=== PATIENT | male | born 1955 | race African-American/Black ===

== ENCOUNTER 2021-06-25 03:12 | Inpatient (IN) | payer MEDICARE ==
[2021-06-25 05:36] VITALS: BMI 31.9
[2021-06-25] MEDS ORDERED: Ondansetron ODT 4 MG TAB PO PRN (07:17)
[2021-06-25] MEDS ORDERED: Acetaminophen 325 MG TAB PO PRN (07:17)
[2021-06-25] MEDS ORDERED: guaiFENesin 200 MG TAB PO PRN (07:22)
[2021-06-25] MEDS ORDERED: Benzonatate 100 MG CAP PO PRN (07:22)
[2021-06-25] MEDS ORDERED: Albuterol 200 PUFF (6.7GM INHALER) INH PRN (07:32)
[2021-06-25] MEDS ORDERED: Dextrose 5% in Water 1,000 ML IV PRN (08:11)
[2021-06-25] MEDS ORDERED: Dextrose 50% Abboject 50 ML SYRINGE SLOW IVP PRN (08:11)
[2021-06-25 08:21] LABS: Hemoglobin 19.1 g/dL (14.0-18.0); Mean Corpuscular HGB CONC 32.7 g/dL (32.0-36.0); Mean Corpuscular Hemoglobin 29.1 pg (27.0-31.0); Mean Corpuscular Volume 89.2 fL (78.0-98.0); Mean Platelet Volume 8.3 fL (7.4-10.4); Platelet Count 162 thou/uL (130-400); RBC Distribution Width 14.2 % (11.5-14.5); Red Blood Cell (RBC) Count 6.56 mill/uL (4.70-6.10); White Blood Cell (WBC) Count 9.4 thou/uL (4.8-10.8)
[2021-06-25 08:31] LABS: Anion Gap 16 mmol/L (10-20); BUN (Urea Nitrogen) 67 mg/dL (8.4-25.7); Calc. Creatinine Clearance 82 mL/min (70-130); Calcium 8.2 mg/dL (7.8-10.44); Carbon Dioxide 21 mmol/L (23-31); Chloride 100 mmol/L (98-107); Glucose 217 mg/dL (80-115); Potassium 5.4 mmol/L (3.5-5.1); Sodium 132 mmol/L (136-145)
[2021-06-25] MEDS ORDERED: cloNIDine 0.1 MG TAB PO SCH (09:00)
[2021-06-25] MEDS: Enoxaparin Sodium 40 MG/0.4 ML SYRINGE SC SCH (09:16)
[2021-06-25] MEDS: Dexamethasone 4 mg/ml Vial SLOW IVP SCH (09:17)
[2021-06-25] MEDS: Carvedilol 6.25 MG TAB PO SCH ×2 (09:18→16:04)
[2021-06-25] MEDS: Ascorbic Acid 500 mg Chewable Tablet PO SCH (09:22)
[2021-06-25] MEDS: Furosemide 40 MG TAB PO SCH (09:22)
[2021-06-25] MEDS: Zinc Sulfate 220 MG CAP PO SCH (09:22)
[2021-06-25] MEDS: Lisinopril 20 MG TAB PO SCH (09:22)
[2021-06-25] MEDS: Atorvastatin Calcium 40 MG TAB PO SCH (09:22)
[2021-06-25] MEDS: Acetaminophen 500 MG TAB PO SCH ×4 (09:30→21:22)
[2021-06-25] MEDS: Lantus 1000 UNITS/10 ML VIAL SC SCH (09:32)
[2021-06-25 10:27] LABS: Band 2 % (5-11); Lymphocytes 11 % (21-51); MDiff Complete? YES; Monocytes 10 % (0-10); Neutrophil 77 % (42-75); Platelet Morphology Comment Appears Adequate; RBC Morphology Normal
[2021-06-25] MEDS: HumaLOG 300 UNITS/3 ML VIAL SC PRN ×3 (12:35→21:01)
[2021-06-25] MEDS: Benzonatate 100 MG CAP PO SCH ×2 (13:31→17:20)
[2021-06-26] MEDS: Benzonatate 100 MG CAP PO SCH ×5 (00:17→23:37)
[2021-06-26] MEDS: Acetaminophen 500 MG TAB PO SCH ×6 (01:00→20:47)
[2021-06-26] MEDS: HumaLOG 300 UNITS/3 ML VIAL SC PRN (05:37)
[2021-06-26] MEDS: Atorvastatin Calcium 40 MG TAB PO SCH (08:42)
[2021-06-26] MEDS: Zinc Sulfate 220 MG CAP PO SCH (08:42)
[2021-06-26] MEDS: Enoxaparin Sodium 40 MG/0.4 ML SYRINGE SC SCH (08:42)
[2021-06-26] MEDS: Carvedilol 6.25 MG TAB PO SCH ×2 (08:43→18:49)
[2021-06-26] MEDS: Lisinopril 20 MG TAB PO SCH (08:43)
[2021-06-26] MEDS: Ascorbic Acid 500 mg Chewable Tablet PO SCH (08:43)
[2021-06-26] MEDS: Lantus 1000 UNITS/10 ML VIAL SC SCH ×2 (08:44→20:50)
[2021-06-26] MEDS: Furosemide 40 MG TAB PO SCH (08:44)
[2021-06-26] MEDS: Dexamethasone 4 mg/ml Vial SLOW IVP SCH (09:20)
[2021-06-26 12:19] LABS: Actual Bicarbonate (HCO3a) 25.3 mEq/L (22-28); Base Excess (BEa) 1.4 mEq/L (-2.0 to +3.0); Carboxyhemoglobin (COHb) 0.3 gm% (0.0-3.0); Hemoglobin (Hb) 17.4 g/dL (14.0-18.0); O2 Tension (PaO2), arterial 68.4 mmHg (> 80.0); Potassium - ABG Lab 4.95 mmol/L (3.70-5.30); pH, Arterial 7.44 (7.35-7.45)
[2021-06-26 12:29] LABS: Puncture Site LRA
[2021-06-26 13:01] LABS: Hemoglobin 16.7 g/dL (14.0-18.0); Mean Corpuscular HGB CONC 32.6 g/dL (32.0-36.0); Mean Corpuscular Hemoglobin 29.2 pg (27.0-31.0); Mean Corpuscular Volume 89.5 fL (78.0-98.0); Mean Platelet Volume 8.4 fL (7.4-10.4); Platelet Count 112 thou/uL (130-400); Red Blood Cell (RBC) Count 5.71 mill/uL (4.70-6.10); White Blood Cell (WBC) Count 9.8 thou/uL (4.8-10.8)
[2021-06-26 13:06] LABS: PTT 42.3 sec (22.9-36.1)
[2021-06-26 13:07] LABS: Band 2 % (5-11); Lymphocytes 3 % (21-51); MDiff Complete? YES; Monocytes 5 % (0-10); Neutrophil 89 % (42-75); Platelet Morphology Comment Appears Decreased; RBC Morphology Normal; Reactive Lymphocytes 1 % (0-10)
[2021-06-26 13:09] LABS: INR-International Normal Ratio 1.3; Prothrombin Time 16.2 sec (12.0-14.7)
[2021-06-26 13:10] LABS: Lactic Acid 2.4 mmol/L (0.5-2.2)
[2021-06-26 13:11] LABS: ALT (SGPT) 120 U/L (8-55); AST (SGOT) 78 U/L (5-34); Albumin 2.2 g/dL (3.4-4.8); Alkaline Phosphatase 87 U/L (40-110); Anion Gap 10 mmol/L (10-20); BUN (Urea Nitrogen) 78 mg/dL (8.4-25.7); Bilirubin, Total 0.7 mg/dL (0.2-1.2); CK (CPK) 130 U/L (30-200); Calc. Creatinine Clearance 66 mL/min (70-130); Calcium 7.4 mg/dL (7.8-10.44); Carbon Dioxide 24 mmol/L (23-31); Chloride 99 mmol/L (98-107); Globulin 2.5 g/dL (2.4-3.5); Glucose 161 mg/dL (80-115); Potassium 5.3 mmol/L (3.5-5.1); Protein, Total 4.7 g/dL (5.8-8.1); Sodium 128 mmol/L (136-145)
[2021-06-26 13:12] LABS: Troponin I 0.044 ng/mL (< 0.028)
[2021-06-26] MEDS ORDERED: MEROPENEM 1 GM/50 ML 1 GM in Premix Bag 1 BAG IVPB SCH (13:15)
[2021-06-26 13:24] LABS: CKMB 9.1 ng/mL (0-6.6)
[2021-06-26] MEDS ORDERED: Meropenem 1 GM in Sodium Chloride 0.9% 100 ML IVPB SCH (14:00)
[2021-06-26] MEDS: VANCOMYCIN 2 GRAM/400 ML BAG 2 GM in Premix Bag 1 BAG IVPB SCH (15:42)
[2021-06-26 15:51] LABS: Troponin I 0.043 ng/mL (< 0.028)
[2021-06-26] MEDS: Sodium Chloride 0.9% 1,000 ML IV SCH (18:42)
[2021-06-26] MEDS: Enoxaparin Sodium 100 MG/ML SYRINGE SC SCH (20:48)
[2021-06-26] MEDS: MEROPENEM 1 GM/50 ML 1 GM in Premix Bag 1 BAG IVPB SCH (20:54)
[2021-06-26] MEDS ORDERED: VANCOMYCIN 1.25 GM/250 ML BAG 1.25 GM in Premix Bag 1 BAG IVPB SCH (21:00)
[2021-06-27] MEDS: Acetaminophen 500 MG TAB PO SCH ×3 (00:12→08:03)
[2021-06-27] MEDS: Sodium Chloride 0.9% 1,000 ML IV SCH ×4 (00:14→18:08)
[2021-06-27] MEDS: Vancomycin 1 GM in Premix Bag 1 BAG IVPB SCH ×3 (01:25→18:09)
[2021-06-27] MEDS: Benzonatate 100 MG CAP PO SCH ×5 (04:51→20:46)
[2021-06-27] MEDS: MEROPENEM 1 GM/50 ML 1 GM in Premix Bag 1 BAG IVPB SCH ×4 (05:17→21:02)
[2021-06-27] MEDS: Atorvastatin Calcium 40 MG TAB PO SCH (08:04)
[2021-06-27] MEDS: Ascorbic Acid 500 mg Chewable Tablet PO SCH (08:04)
[2021-06-27] MEDS: Zinc Sulfate 220 MG CAP PO SCH (08:04)
[2021-06-27] MEDS: Furosemide 40 MG TAB PO SCH (08:05)
[2021-06-27] MEDS: Enoxaparin Sodium 100 MG/ML SYRINGE SC SCH ×2 (08:05→20:45)
[2021-06-27] MEDS: Carvedilol 6.25 MG TAB PO SCH ×4 (08:05→18:09)
[2021-06-27] MEDS: Dexamethasone 4 mg/ml Vial SLOW IVP SCH (08:06)
[2021-06-27] MEDS: Lantus 1000 UNITS/10 ML VIAL SC SCH ×2 (08:07→20:45)
[2021-06-27] MEDS ORDERED: Acetaminophen 500 MG TAB PO PRN (08:32)
[2021-06-27] MEDS ORDERED: Sodium Chloride 0.9% 1,000 ML IV SCH (08:33)
[2021-06-27 10:38] LABS: #Basophils 0.1 thou/uL (0.0-0.2); #Lymphocytes 0.7 thou/uL (1.20-3.40); #Monocytes 0.9 thou/uL (0.11-0.59); #Neutrophils 8.9 thou/uL (1.40-6.50); %Basophils 0.8 % (0.0-1.0); %Eosinophils 0.2 % (0.0-10.0); %Lymphocytes 6.4 % (21.0-51.0); %Monocytes 8.8 % (0.0-10.0); %Neutrophils 83.9 % (42.0-75.0); Hemoglobin 16.8 g/dL (14.0-18.0); Mean Corpuscular HGB CONC 32.6 g/dL (32.0-36.0); Mean Corpuscular Hemoglobin 29.3 pg (27.0-31.0); Mean Platelet Volume 8.5 fL (7.4-10.4); Platelet Count 112 thou/uL (130-400); RBC Distribution Width 14.4 % (11.5-14.5); Red Blood Cell (RBC) Count 5.75 mill/uL (4.70-6.10); White Blood Cell (WBC) Count 10.6 thou/uL (4.8-10.8)
[2021-06-27 10:54] LABS: Anion Gap 13 mmol/L (10-20); BUN (Urea Nitrogen) 58 mg/dL (8.4-25.7); Calc. Creatinine Clearance 99 mL/min (70-130); Calcium 7.3 mg/dL (7.8-10.44); Carbon Dioxide 21 mmol/L (23-31); Chloride 103 mmol/L (98-107); Glucose 171 mg/dL (80-115); Potassium 4.8 mmol/L (3.5-5.1); Sodium 132 mmol/L (136-145)
[2021-06-27] MEDS: HumaLOG 300 UNITS/3 ML VIAL SC PRN (16:00)
[2021-06-27] MEDS: VANCOMYCIN 2 GRAM/400 ML BAG 2 GM in Premix Bag 1 BAG IVPB SCH (19:38)
[2021-06-27 22:24] LABS: Creatinine, Urine 71.95 mg/dL (63-166)
[2021-06-28] MEDS: Vancomycin 1 GM in Premix Bag 1 BAG IVPB SCH ×2 (03:00→15:13)
[2021-06-28] MEDS: Benzonatate 100 MG CAP PO SCH ×4 (06:00→21:00)
[2021-06-28] MEDS: MEROPENEM 1 GM/50 ML 1 GM in Premix Bag 1 BAG IVPB SCH ×3 (06:00→21:00)
[2021-06-28] MEDS: Ascorbic Acid 500 mg Chewable Tablet PO SCH (08:20)
[2021-06-28] MEDS: Zinc Sulfate 220 MG CAP PO SCH (08:20)
[2021-06-28] MEDS: Atorvastatin Calcium 40 MG TAB PO SCH (08:20)
[2021-06-28] MEDS: Carvedilol 6.25 MG TAB PO SCH ×2 (08:21→17:26)
[2021-06-28] MEDS: Dexamethasone 4 mg/ml Vial SLOW IVP SCH (08:21)
[2021-06-28] MEDS: Enoxaparin Sodium 100 MG/ML SYRINGE SC SCH (08:22)
[2021-06-28] MEDS: Lantus 1000 UNITS/10 ML VIAL SC SCH ×2 (08:24→20:57)
[2021-06-28 09:15] LABS: Vancomycin, Trough 16.2 ug/mL
[2021-06-28] MEDS: Sodium Chloride 0.9% 1,000 ML IV SCH (09:50)
[2021-06-28] MEDS: HumaLOG 300 UNITS/3 ML VIAL SC PRN ×3 (12:00→20:58)
[2021-06-28 14:42] LABS: #Lymphocytes 0.5 thou/uL (1.20-3.40); #Monocytes 0.5 thou/uL (0.11-0.59); #Neutrophils 8.4 thou/uL (1.40-6.50); %Eosinophils 0.1 % (0.0-10.0); %Lymphocytes 4.9 % (21.0-51.0); %Neutrophils 89.9 % (42.0-75.0); Hemoglobin 16.1 g/dL (14.0-18.0); Mean Corpuscular HGB CONC 32.4 g/dL (32.0-36.0); Mean Corpuscular Hemoglobin 29.2 pg (27.0-31.0); Mean Corpuscular Volume 90.1 fL (78.0-98.0); Mean Platelet Volume 8.8 fL (7.4-10.4); Platelet Count 106 thou/uL (130-400); RBC Distribution Width 14.4 % (11.5-14.5); Red Blood Cell (RBC) Count 5.49 mill/uL (4.70-6.10); White Blood Cell (WBC) Count 9.3 thou/uL (4.8-10.8)
[2021-06-28 14:55] LABS: Potassium, Urine 24.5 mmol/L
[2021-06-28 15:02] LABS: ALT (SGPT) 205 U/L (8-55); AST (SGOT) 116 U/L (5-34); Albumin 2.1 g/dL (3.4-4.8); Alkaline Phosphatase 100 U/L (40-110); Bilirubin, Direct 0.3 mg/dL (0.1-0.3); Bilirubin, Total 0.5 mg/dL (0.2-1.2)
[2021-06-28 15:04] LABS: ALT (SGPT) 210 U/L (8-55); AST (SGOT) 118 U/L (5-34); Albumin 2.1 g/dL (3.4-4.8); Alkaline Phosphatase 97 U/L (40-110); Anion Gap 14 mmol/L (10-20); BUN (Urea Nitrogen) 43 mg/dL (8.4-25.7); Bilirubin, Total 0.6 mg/dL (0.2-1.2); Calc. Creatinine Clearance 112 mL/min (70-130); Calcium 7.4 mg/dL (7.8-10.44); Carbon Dioxide 20 mmol/L (23-31); Chloride 101 mmol/L (98-107); Globulin 2.6 g/dL (2.4-3.5); Glucose 246 mg/dL (80-115); Potassium 4.8 mmol/L (3.5-5.1); Protein, Total 4.7 g/dL (5.8-8.1); Sodium 130 mmol/L (136-145)
[2021-06-28] MEDS: Enoxaparin Sodium 40 MG/0.4 ML SYRINGE SC SCH (21:00)
[2021-06-29] MEDS: Vancomycin 1 GM in Premix Bag 1 BAG IVPB SCH (03:05)
[2021-06-29] MEDS: MEROPENEM 1 GM/50 ML 1 GM in Premix Bag 1 BAG IVPB SCH (05:59)
[2021-06-29] MEDS: Benzonatate 100 MG CAP PO SCH ×3 (05:59→16:13)
[2021-06-29 06:11] LABS: #Monocytes 0.7 thou/uL (0.11-0.59); #Neutrophils 7.4 thou/uL (1.40-6.50); %Basophils 0.1 % (0.0-1.0); %Eosinophils 0.3 % (0.0-10.0); %Lymphocytes 10.8 % (21.0-51.0); %Monocytes 7.6 % (0.0-10.0); %Neutrophils 81.2 % (42.0-75.0); Hemoglobin 15.3 g/dL (14.0-18.0); Mean Corpuscular HGB CONC 31.8 g/dL (32.0-36.0); Mean Corpuscular Hemoglobin 28.5 pg (27.0-31.0); Mean Corpuscular Volume 89.6 fL (78.0-98.0); Mean Platelet Volume 8.9 fL (7.4-10.4); Platelet Count 107 thou/uL (130-400); RBC Distribution Width 14.3 % (11.5-14.5); Red Blood Cell (RBC) Count 5.38 mill/uL (4.70-6.10); White Blood Cell (WBC) Count 9.2 thou/uL (4.8-10.8)
[2021-06-29 06:32] LABS: ALT (SGPT) 185 U/L (8-55); AST (SGOT) 94 U/L (5-34); Albumin 2.1 g/dL (3.4-4.8); Alkaline Phosphatase 91 U/L (40-110); Bilirubin, Direct 0.2 mg/dL (0.1-0.3); Bilirubin, Total 0.5 mg/dL (0.2-1.2); Protein, Total 4.8 g/dL (5.8-8.1)
[2021-06-29 06:33] LABS: AST (SGOT) 98 U/L (5-34); Albumin 2.1 g/dL (3.4-4.8); Alkaline Phosphatase 96 U/L (40-110); Anion Gap 9 mmol/L (10-20); BUN (Urea Nitrogen) 32 mg/dL (8.4-25.7); Bilirubin, Total 0.5 mg/dL (0.2-1.2); Calc. Creatinine Clearance 142 mL/min (70-130); Calcium 7.4 mg/dL (7.8-10.44); Carbon Dioxide 24 mmol/L (23-31); Chloride 101 mmol/L (98-107); Globulin 2.5 g/dL (2.4-3.5); Glucose 115 mg/dL (80-115); Potassium 4.8 mmol/L (3.5-5.1); Protein, Total 4.6 g/dL (5.8-8.1); Sodium 129 mmol/L (136-145)
[2021-06-29 06:34] LABS: ALT (SGPT) 190 U/L (8-55)
[2021-06-29 06:38] LABS: Anion Gap 11 mmol/L (10-20); BUN (Urea Nitrogen) 32 mg/dL (8.4-25.7); Calc. Creatinine Clearance 142 mL/min (70-130); Calcium 7.5 mg/dL (7.8-10.44); Carbon Dioxide 23 mmol/L (23-31); Chloride 103 mmol/L (98-107); Glucose 112 mg/dL (80-115); Potassium 4.8 mmol/L (3.5-5.1); Sodium 132 mmol/L (136-145)
[2021-06-29] MEDS: Ascorbic Acid 500 mg Chewable Tablet PO SCH (09:06)
[2021-06-29] MEDS: Atorvastatin Calcium 40 MG TAB PO SCH (09:06)
[2021-06-29] MEDS: Carvedilol 6.25 MG TAB PO SCH ×2 (09:06→16:12)
[2021-06-29] MEDS: Dexamethasone 4 mg/ml Vial SLOW IVP SCH (09:07)
[2021-06-29] MEDS: Enoxaparin Sodium 40 MG/0.4 ML SYRINGE SC SCH ×2 (09:07→21:50)
[2021-06-29] MEDS: Zinc Sulfate 220 MG CAP PO SCH (09:08)
[2021-06-29] MEDS: Lantus 1000 UNITS/10 ML VIAL SC SCH (09:08)
[2021-06-29] MEDS ORDERED: Polyethylene Glycol 3350 17 GM Packet PO SCH (12:15)
[2021-06-29] MEDS ORDERED: Magnesium Oxide 400 MG TAB PO SCH (15:15)
[2021-06-29] MEDS: HumaLOG 300 UNITS/3 ML VIAL SC PRN ×2 (17:03→21:50)
[2021-06-29] MEDS ORDERED: Acetaminophen 500 MG TAB PO PRN (17:32)
[2021-06-30] MEDS: Benzonatate 100 MG CAP PO SCH ×4 (00:13→18:22)
[2021-06-30 06:08] LABS: ALT (SGPT) 177 U/L (8-55); AST (SGOT) 83 U/L (5-34); Albumin 2.1 g/dL (3.4-4.8); Alkaline Phosphatase 101 U/L (40-110); Bilirubin, Direct 0.3 mg/dL (0.1-0.3); Bilirubin, Total 0.5 mg/dL (0.2-1.2); Protein, Total 4.9 g/dL (5.8-8.1)
[2021-06-30 06:17] LABS: Band 9 % (5-11); Hemoglobin 14.8 g/dL (14.0-18.0); Lymphocytes 6 % (21-51); MDiff Complete? YES; Mean Corpuscular HGB CONC 32.7 g/dL (32.0-36.0); Mean Corpuscular Hemoglobin 29.2 pg (27.0-31.0); Mean Corpuscular Volume 89.2 fL (78.0-98.0); Monocytes 14 % (0-10); Neutrophil 71 % (42-75); Platelet Count 119 thou/uL (130-400); Platelet Morphology Comment Appears Decreased; RBC Distribution Width 14.2 % (11.5-14.5); RBC Morphology Normal; Red Blood Cell (RBC) Count 5.08 mill/uL (4.70-6.10); White Blood Cell (WBC) Count 8.9 thou/uL (4.8-10.8)
[2021-06-30 06:23] LABS: Anion Gap 10 mmol/L (10-20); BUN (Urea Nitrogen) 31 mg/dL (8.4-25.7); CRP (Inflammatory) 2.05 mg/dL (= or < 0.5); Calc. Creatinine Clearance 132 mL/min (70-130); Calcium 7.6 mg/dL (7.8-10.44); Carbon Dioxide 25 mmol/L (23-31); Chloride 101 mmol/L (98-107); Glucose 101 mg/dL (80-115); Potassium 5.1 mmol/L (3.5-5.1); Sodium 131 mmol/L (136-145)
[2021-06-30 06:25] LABS: ALT (SGPT) 175 U/L (8-55); AST (SGOT) 83 U/L (5-34); Albumin 2.2 g/dL (3.4-4.8); Alkaline Phosphatase 104 U/L (40-110); Anion Gap 10 mmol/L (10-20); BUN (Urea Nitrogen) 30 mg/dL (8.4-25.7); Bilirubin, Total 0.6 mg/dL (0.2-1.2); Calc. Creatinine Clearance 133 mL/min (70-130); Calcium 7.6 mg/dL (7.8-10.44); Carbon Dioxide 25 mmol/L (23-31); Chloride 101 mmol/L (98-107); Globulin 2.3 g/dL (2.4-3.5); Glucose 103 mg/dL (80-115); Protein, Total 4.5 g/dL (5.8-8.1); Sodium 131 mmol/L (136-145)
[2021-06-30] MEDS ORDERED: ALPRAZolam 0.25 MG TAB PO PRN (08:22)
[2021-06-30] MEDS: Ascorbic Acid 500 mg Chewable Tablet PO SCH (08:33)
[2021-06-30] MEDS: Zinc Sulfate 220 MG CAP PO SCH (08:34)
[2021-06-30] MEDS: Atorvastatin Calcium 40 MG TAB PO SCH (08:34)
[2021-06-30] MEDS: Magnesium Oxide 400 MG TAB PO SCH (08:34)
[2021-06-30] MEDS: Acetaminophen 500 MG TAB PO SCH (08:34)
[2021-06-30] MEDS: Polyethylene Glycol 3350 17 GM Packet PO SCH (08:36)
[2021-06-30] MEDS: Dexamethasone 4 mg/ml Vial SLOW IVP SCH (08:36)
[2021-06-30] MEDS: Carvedilol 6.25 MG TAB PO SCH ×2 (08:37→17:56)
[2021-06-30] MEDS: Lantus 1000 UNITS/10 ML VIAL SC SCH (08:38)
[2021-06-30] MEDS: Enoxaparin Sodium 40 MG/0.4 ML SYRINGE SC SCH (08:51)
[2021-07-01] MEDS: Benzonatate 100 MG CAP PO SCH ×5 (00:39→20:26)
[2021-07-01 05:55] LABS: #Eosinphils 0.2 thou/uL (0.0-0.7); #Lymphocytes 1.2 thou/uL (1.20-3.40); #Monocytes 0.7 thou/uL (0.11-0.59); #Neutrophils 8.9 thou/uL (1.40-6.50); %Basophils 0.3 % (0.0-1.0); %Eosinophils 1.4 % (0.0-10.0); %Lymphocytes 10.8 % (21.0-51.0); %Monocytes 6.3 % (0.0-10.0); %Neutrophils 81.1 % (42.0-75.0); Mean Corpuscular HGB CONC 32.7 g/dL (32.0-36.0); Mean Corpuscular Hemoglobin 29.1 pg (27.0-31.0); Mean Platelet Volume 8.6 fL (7.4-10.4); Platelet Count 113 thou/uL (130-400); RBC Distribution Width 14.2 % (11.5-14.5); Red Blood Cell (RBC) Count 4.82 mill/uL (4.70-6.10)
[2021-07-01 06:05] LABS: ALT (SGPT) 146 U/L (8-55); AST (SGOT) 73 U/L (5-34); Albumin 2.1 g/dL (3.4-4.8); Alkaline Phosphatase 117 U/L (40-110); Anion Gap 12 mmol/L (10-20); BUN (Urea Nitrogen) 29 mg/dL (8.4-25.7); Bilirubin, Total 0.6 mg/dL (0.2-1.2); Calc. Creatinine Clearance 140 mL/min (70-130); Calcium 7.7 mg/dL (7.8-10.44); Carbon Dioxide 24 mmol/L (23-31); Chloride 98 mmol/L (98-107); Glucose 103 mg/dL (80-115); Potassium 5.1 mmol/L (3.5-5.1); Protein, Total 5.1 g/dL (5.8-8.1); Sodium 129 mmol/L (136-145)
[2021-07-01] MEDS: Zinc Sulfate 220 MG CAP PO SCH (08:56)
[2021-07-01] MEDS: Acetaminophen 500 MG TAB PO SCH (08:57)
[2021-07-01] MEDS: Atorvastatin Calcium 40 MG TAB PO SCH (08:58)
[2021-07-01] MEDS: Carvedilol 6.25 MG TAB PO SCH ×2 (08:59→16:57)
[2021-07-01] MEDS: Ascorbic Acid 500 mg Chewable Tablet PO SCH (08:59)
[2021-07-01] MEDS: Enoxaparin Sodium 40 MG/0.4 ML SYRINGE SC SCH (09:00)
[2021-07-01] MEDS: Dexamethasone 4 mg/ml Vial SLOW IVP SCH (09:00)
[2021-07-01] MEDS: Polyethylene Glycol 3350 17 GM Packet PO SCH (09:00)
[2021-07-01] MEDS: Magnesium Oxide 400 MG TAB PO SCH (09:00)
[2021-07-01] MEDS: Lantus 1000 UNITS/10 ML VIAL SC SCH (09:02)
[2021-07-01] MEDS: HumaLOG 300 UNITS/3 ML VIAL SC PRN ×2 (18:05→20:26)
[2021-07-01] MEDS: traMADol HCl 50 MG TAB PO PRN (22:11)
[2021-07-02] MEDS: Benzonatate 100 MG CAP PO SCH ×4 (05:40→22:40)
[2021-07-02] MEDS: HumaLOG 300 UNITS/3 ML VIAL SC PRN (05:51)
[2021-07-02 05:55] LABS: #Eosinphils 0.2 thou/uL (0.0-0.7); #Lymphocytes 1.1 thou/uL (1.20-3.40); #Neutrophils 11.9 thou/uL (1.40-6.50); %Eosinophils 1.2 % (0.0-10.0); %Lymphocytes 7.6 % (21.0-51.0); %Monocytes 7.2 % (0.0-10.0); %Neutrophils 84.1 % (42.0-75.0); Hemoglobin 14.6 g/dL (14.0-18.0); Mean Corpuscular HGB CONC 33.5 g/dL (32.0-36.0); Mean Corpuscular Hemoglobin 30.3 pg (27.0-31.0); Mean Corpuscular Volume 90.3 fL (78.0-98.0); Mean Platelet Volume 9.2 fL (7.4-10.4); Platelet Count 112 thou/uL (130-400); RBC Distribution Width 14.6 % (11.5-14.5); Red Blood Cell (RBC) Count 4.84 mill/uL (4.70-6.10); White Blood Cell (WBC) Count 14.1 thou/uL (4.8-10.8)
[2021-07-02] MEDS: traMADol HCl 50 MG TAB PO PRN (08:20)
[2021-07-02] MEDS: Ascorbic Acid 500 mg Chewable Tablet PO SCH (08:20)
[2021-07-02] MEDS: Dexamethasone 4 MG TAB PO SCH (08:21)
[2021-07-02] MEDS: Carvedilol 6.25 MG TAB PO SCH ×2 (08:21→18:15)
[2021-07-02] MEDS: Acetaminophen 500 MG TAB PO SCH (08:21)
[2021-07-02] MEDS: Enoxaparin Sodium 40 MG/0.4 ML SYRINGE SC SCH (08:21)
[2021-07-02] MEDS: Zinc Sulfate 220 MG CAP PO SCH (08:22)
[2021-07-02] MEDS: Magnesium Oxide 400 MG TAB PO SCH (08:22)
[2021-07-02] MEDS: Lantus 1000 UNITS/10 ML VIAL SC SCH (09:01)
[2021-07-02] MEDS: Atorvastatin Calcium 40 MG TAB PO SCH (09:03)
[2021-07-02] MEDS ORDERED: Iopamidol 370 76% 100 ML VIAL ONE (09:11)
[2021-07-02 11:03] LABS: ALT (SGPT) 107 U/L (8-55); AST (SGOT) 60 U/L (5-34); Albumin 1.9 g/dL (3.4-4.8); Alkaline Phosphatase 130 U/L (40-110); Anion Gap 12 mmol/L (10-20); BUN (Urea Nitrogen) 43 mg/dL (8.4-25.7); Bilirubin, Total 0.4 mg/dL (0.2-1.2); Calc. Creatinine Clearance 111 mL/min (70-130); Calcium 7.8 mg/dL (7.8-10.44); Carbon Dioxide 22 mmol/L (23-31); Chloride 102 mmol/L (98-107); Globulin 2.9 g/dL (2.4-3.5); Glucose 152 mg/dL (80-115); Potassium 6.2 mmol/L (3.5-5.1); Protein, Total 4.8 g/dL (5.8-8.1); Sodium 130 mmol/L (136-145)
[2021-07-02] MEDS ORDERED: Furosemide 40 MG/4 ML VIAL SLOW IVP SCH (12:00)
[2021-07-02 12:20] LABS: Bilirubin Negative (Negative); Blood, Urine Negative (Negative); Clarity Clear (Clear); Glucose, Urine (Dipstick) Normal (Negative); Ketone, Urine Negative (Negative); Leukocyte Negative Leu/uL (Negative); Nitrite Negative (Negative); Protein, Urine (Dipstick) 20 mg/dL (Neg-Trace); Urobilinogen Normal mg/dL (Less than 2); pH, Urine 5.5 (5.0-9.0)
[2021-07-02 12:21] LABS: Specific Gravity, Urine 1.047 (1.002-1.036)
[2021-07-02 19:38] LABS: Anion Gap 12 mmol/L (10-20); Calcium 7.7 mg/dL (7.8-10.44); Carbon Dioxide 26 mmol/L (23-31); Chloride 101 mmol/L (98-107); Potassium 5.4 mmol/L (3.5-5.1); Sodium 134 mmol/L (136-145)
[2021-07-02 19:43] LABS: Glucose 127 mg/dL (80-115)
[2021-07-02 19:46] LABS: Calc. Creatinine Clearance 129 mL/min (70-130)
[2021-07-02 19:47] LABS: BUN (Urea Nitrogen) 39 mg/dL (8.4-25.7)
[2021-07-03] MEDS: Benzonatate 100 MG CAP PO SCH (05:58)
[2021-07-03] MEDS: Carvedilol 6.25 MG TAB PO SCH ×2 (08:52→16:08)
[2021-07-03] MEDS: Dexamethasone 4 MG TAB PO SCH (08:53)
[2021-07-03] MEDS: Acetaminophen 500 MG TAB PO SCH (08:54)
[2021-07-03] MEDS: Enoxaparin Sodium 40 MG/0.4 ML SYRINGE SC SCH (08:54)
[2021-07-03] MEDS: Ascorbic Acid 500 mg Chewable Tablet PO SCH (08:54)
[2021-07-03] MEDS: Magnesium Oxide 400 MG TAB PO SCH (08:55)
[2021-07-03] MEDS: Furosemide 40 MG/4 ML VIAL SLOW IVP SCH (08:55)
[2021-07-03] MEDS: Zinc Sulfate 220 MG CAP PO SCH (08:55)
[2021-07-03 10:57] LABS: Actual Bicarbonate (HCO3a) 24.7 mEq/L (22-28); Base Excess (BEa) 2.2 mEq/L (-2.0 to +3.0); CO2 Tension 31.8 mmHg (35.0-45.0); Calcium, Ionized (arterial) 1.07 mmol/L (1.12-1.30); Carboxyhemoglobin (COHb) 0.3 gm% (0.0-3.0); Hemoglobin (Hb) 12.6 g/dL (14.0-18.0); O2 Tension (PaO2), arterial 120.8 mmHg (> 80.0); Potassium - ABG Lab 5.23 mmol/L (3.70-5.30); pH, Arterial 7.51 (7.35-7.45)
[2021-07-03 11:00] LABS: Puncture Site RRA
[2021-07-03] MEDS: Lantus 1000 UNITS/10 ML VIAL SC SCH (11:42)
[2021-07-03 11:56] LABS: #Basophils 0.1 thou/uL (0.0-0.2); #Lymphocytes 0.9 thou/uL (1.20-3.40); #Monocytes 0.7 thou/uL (0.11-0.59); #Neutrophils 11.8 thou/uL (1.40-6.50); %Basophils 1.1 % (0.0-1.0); %Lymphocytes 6.7 % (21.0-51.0); %Monocytes 5.1 % (0.0-10.0); %Neutrophils 87.2 % (42.0-75.0); Hemoglobin 12.6 g/dL (14.0-18.0); Mean Corpuscular HGB CONC 31.8 g/dL (32.0-36.0); Mean Corpuscular Volume 91.2 fL (78.0-98.0); Mean Platelet Volume 9.1 fL (7.4-10.4); Platelet Count 179 thou/uL (130-400); RBC Distribution Width 15.5 % (11.5-14.5); Red Blood Cell (RBC) Count 4.32 mill/uL (4.70-6.10); White Blood Cell (WBC) Count 13.6 thou/uL (4.8-10.8)
[2021-07-03 12:11] LABS: Lactic Acid 2.6 mmol/L (0.5-2.2)
[2021-07-03] MEDS ORDERED: Vancomycin HCl 1 GM in Sodium Chloride 0.9% 250 ML 250 ML IVPB SCH (15:00)
[2021-07-03] MEDS: Cefepime 2 GM in Sodium Chloride 0.9% 100 ML IVPB SCH (15:36)
[2021-07-03] MEDS: Vancomycin 1 GM in Premix Bag 1 BAG IVPB SCH (16:08)
[2021-07-03 17:16] LABS: ALT (SGPT) 95 U/L (8-55); AST (SGOT) 62 U/L (5-34); Albumin 2.1 g/dL (3.4-4.8); Alkaline Phosphatase 124 U/L (40-110); Anion Gap 14 mmol/L (10-20); BUN (Urea Nitrogen) 51 mg/dL (8.4-25.7); Bilirubin, Total 0.5 mg/dL (0.2-1.2); Calc. Creatinine Clearance 96 mL/min (70-130); Calcium 7.6 mg/dL (7.8-10.44); Carbon Dioxide 23 mmol/L (23-31); Chloride 101 mmol/L (98-107); Globulin 2.7 g/dL (2.4-3.5); Glucose 101 mg/dL (80-115); Potassium 5.6 mmol/L (3.5-5.1); Protein, Total 4.8 g/dL (5.8-8.1); Sodium 132 mmol/L (136-145)
[2021-07-04] MEDS: Cefepime 2 GM in Sodium Chloride 0.9% 100 ML IVPB SCH ×2 (02:16→14:50)
[2021-07-04] MEDS: Vancomycin 1 GM in Premix Bag 1 BAG IVPB SCH ×2 (03:56→15:30)
[2021-07-04] MEDS: Ascorbic Acid 500 mg Chewable Tablet PO SCH (09:30)
[2021-07-04] MEDS: Zinc Sulfate 220 MG CAP PO SCH (09:30)
[2021-07-04] MEDS: Carvedilol 6.25 MG TAB PO SCH ×2 (09:30→14:49)
[2021-07-04] MEDS: Dexamethasone 4 MG TAB PO SCH (09:30)
[2021-07-04] MEDS: Magnesium Oxide 400 MG TAB PO SCH (09:30)
[2021-07-04] MEDS: Enoxaparin Sodium 40 MG/0.4 ML SYRINGE SC SCH (09:30)
[2021-07-04 09:32] LABS: Magnesium 2.4 mg/dL (1.6-2.6); Phosphorus 4.2 mg/dL (2.3-4.7)
[2021-07-04] MEDS: Acetaminophen 500 MG TAB PO SCH (12:31)
[2021-07-04] MEDS: Furosemide 40 MG/4 ML VIAL SLOW IVP SCH (12:32)
[2021-07-04] MEDS: HumaLOG 300 UNITS/3 ML VIAL SC PRN (12:35)
[2021-07-04 17:50] LABS: Anion Gap 14 mmol/L (10-20); BUN (Urea Nitrogen) 66 mg/dL (8.4-25.7); Calc. Creatinine Clearance 78 mL/min (70-130); Calcium 7.2 mg/dL (7.8-10.44); Carbon Dioxide 23 mmol/L (23-31); Chloride 98 mmol/L (98-107); Glucose 211 mg/dL (80-115); Potassium 5.4 mmol/L (3.5-5.1); Sodium 130 mmol/L (136-145)
[2021-07-04 18:08] LABS: Magnesium 2.2 mg/dL (1.6-2.6)
[2021-07-05] MEDS: Cefepime 2 GM in Sodium Chloride 0.9% 100 ML IVPB SCH ×2 (03:57→15:15)
[2021-07-05 04:32] LABS: #Lymphocytes 0.6 thou/uL (1.20-3.40); #Monocytes 0.6 thou/uL (0.11-0.59); #Neutrophils 13.6 thou/uL (1.40-6.50); %Eosinophils 0.1 % (0.0-10.0); %Neutrophils 91.8 % (42.0-75.0); Hemoglobin 11.7 g/dL (14.0-18.0); Mean Corpuscular HGB CONC 32.9 g/dL (32.0-36.0); Mean Corpuscular Hemoglobin 29.9 pg (27.0-31.0); Mean Corpuscular Volume 90.7 fL (78.0-98.0); Mean Platelet Volume 8.3 fL (7.4-10.4); Platelet Count 146 thou/uL (130-400); RBC Distribution Width 15.3 % (11.5-14.5); Red Blood Cell (RBC) Count 3.91 mill/uL (4.70-6.10); Vancomycin, Trough 21.1 ug/mL; White Blood Cell (WBC) Count 14.8 thou/uL (4.8-10.8)
[2021-07-05 04:36] LABS: ALT (SGPT) 83 U/L (8-55); AST (SGOT) 56 U/L (5-34); Alkaline Phosphatase 106 U/L (40-110); Anion Gap 16 mmol/L (10-20); BUN (Urea Nitrogen) 63 mg/dL (8.4-25.7); Bilirubin, Total 0.6 mg/dL (0.2-1.2); Calc. Creatinine Clearance 81 mL/min (70-130); Calcium 7.3 mg/dL (7.8-10.44); Carbon Dioxide 21 mmol/L (23-31); Chloride 99 mmol/L (98-107); Globulin 2.6 g/dL (2.4-3.5); Glucose 172 mg/dL (80-115); Potassium 5.5 mmol/L (3.5-5.1); Protein, Total 4.6 g/dL (5.8-8.1); Sodium 130 mmol/L (136-145)
[2021-07-05] MEDS: Vancomycin 1 GM in Premix Bag 1 BAG IVPB SCH ×2 (04:41→15:15)
[2021-07-05] MEDS: Carvedilol 6.25 MG TAB PO SCH ×2 (09:12→17:19)
[2021-07-05] MEDS: Acetaminophen 500 MG TAB PO SCH (09:13)
[2021-07-05] MEDS: Enoxaparin Sodium 40 MG/0.4 ML SYRINGE SC SCH (09:14)
[2021-07-05] MEDS: Ascorbic Acid 500 mg Chewable Tablet PO SCH (09:14)
[2021-07-05] MEDS: Furosemide 40 MG/4 ML VIAL SLOW IVP SCH (09:14)
[2021-07-05] MEDS: Polyethylene Glycol 3350 17 GM Packet PO SCH (09:14)
[2021-07-05] MEDS: Magnesium Oxide 400 MG TAB PO SCH (09:14)
[2021-07-05] MEDS: Dexamethasone 4 MG TAB PO SCH (09:14)
[2021-07-05] MEDS: Zinc Sulfate 220 MG CAP PO SCH (09:15)
[2021-07-05] MEDS: HumaLOG 300 UNITS/3 ML VIAL SC PRN ×3 (11:14→21:47)
[2021-07-05] MEDS ORDERED: Sodium Bicarbonate 150 MEQ in Dextrose 5% in Water 1,000 ML IV SCH ×2 (14:15)
[2021-07-05] MEDS ORDERED: Metoprolol Tartrate 25 MG TAB PO SCH (14:15)
[2021-07-05] MEDS ORDERED: Bisacodyl 10 MG SUPP PR PRN (14:46)
[2021-07-05 15:08] LABS: Anion Gap 15 mmol/L (10-20); BUN (Urea Nitrogen) 64 mg/dL (8.4-25.7); Calc. Creatinine Clearance 75 mL/min (70-130); Calcium 7.6 mg/dL (7.8-10.44); Carbon Dioxide 22 mmol/L (23-31); Chloride 99 mmol/L (98-107); Glucose 177 mg/dL (80-115); Magnesium 2.4 mg/dL (1.6-2.6); Potassium 5.2 mmol/L (3.5-5.1); Sodium 131 mmol/L (136-145)
[2021-07-05 17:20] VITALS: BP 94/66
[2021-07-05] MEDS: Metoprolol Tartrate 25 MG TAB PO SCH (21:52)
[2021-07-06] MEDS: Cefepime 2 GM in Sodium Chloride 0.9% 100 ML IVPB SCH ×2 (03:52→15:43)
[2021-07-06 04:49] LABS: #Lymphocytes 0.6 thou/uL (1.20-3.40); #Monocytes 0.5 thou/uL (0.11-0.59); #Neutrophils 13.8 thou/uL (1.40-6.50); %Basophils 0.1 % (0.0-1.0); %Lymphocytes 4.1 % (21.0-51.0); %Monocytes 3.1 % (0.0-10.0); %Neutrophils 92.7 % (42.0-75.0); Hemoglobin 10.6 g/dL (14.0-18.0); Mean Corpuscular HGB CONC 31.9 g/dL (32.0-36.0); Mean Corpuscular Volume 91.1 fL (78.0-98.0); Mean Platelet Volume 7.9 fL (7.4-10.4); Platelet Count 163 thou/uL (130-400); RBC Distribution Width 15.2 % (11.5-14.5); Red Blood Cell (RBC) Count 3.64 mill/uL (4.70-6.10); White Blood Cell (WBC) Count 14.9 thou/uL (4.8-10.8)
[2021-07-06] MEDS: Vancomycin 1 GM in Premix Bag 1 BAG IVPB SCH ×2 (05:09→15:43)
[2021-07-06] MEDS: HumaLOG 300 UNITS/3 ML VIAL SC PRN (05:13)
[2021-07-06 05:31] LABS: ALT (SGPT) 81 U/L (8-55); AST (SGOT) 55 U/L (5-34); Alkaline Phosphatase 107 U/L (40-110); Anion Gap 15 mmol/L (10-20); BUN (Urea Nitrogen) 59 mg/dL (8.4-25.7); Bilirubin, Total 0.5 mg/dL (0.2-1.2); Calc. Creatinine Clearance 81 mL/min (70-130); Calcium 7.5 mg/dL (7.8-10.44); Carbon Dioxide 26 mmol/L (23-31); Chloride 97 mmol/L (98-107); Globulin 2.4 g/dL (2.4-3.5); Glucose 234 mg/dL (80-115); Potassium 4.8 mmol/L (3.5-5.1); Protein, Total 4.4 g/dL (5.8-8.1); Sodium 133 mmol/L (136-145)
[2021-07-06] MEDS: Dexamethasone 4 MG TAB PO SCH (09:02)
[2021-07-06] MEDS: Enoxaparin Sodium 40 MG/0.4 ML SYRINGE SC SCH (09:03)
[2021-07-06] MEDS: Metoprolol Tartrate 25 MG TAB PO SCH ×2 (09:03→21:09)
[2021-07-06] MEDS: Magnesium Oxide 400 MG TAB PO SCH (09:03)
[2021-07-06] MEDS: Acetaminophen 500 MG TAB PO SCH (09:03)
[2021-07-06] MEDS: Ascorbic Acid 500 mg Chewable Tablet PO SCH (09:03)
[2021-07-06] MEDS: Polyethylene Glycol 3350 17 GM Packet PO SCH (09:04)
[2021-07-06] MEDS: Zinc Sulfate 220 MG CAP PO SCH (09:04)
[2021-07-06] MEDS: Carvedilol 6.25 MG TAB PO SCH (10:01)
[2021-07-07] MEDS: Cefepime 2 GM in Sodium Chloride 0.9% 100 ML IVPB SCH ×2 (03:32→13:55)
[2021-07-07 05:29] LABS: Vancomycin, Trough 28.2 ug/mL
[2021-07-07 05:48] LABS: Band 12 % (5-11); Hemoglobin 10.8 g/dL (14.0-18.0); Lymphocytes 1 % (21-51); MDiff Complete? YES; Mean Corpuscular HGB CONC 32.1 g/dL (32.0-36.0); Mean Corpuscular Hemoglobin 29.3 pg (27.0-31.0); Mean Corpuscular Volume 91.4 fL (78.0-98.0); Mean Platelet Volume 7.9 fL (7.4-10.4); Monocytes 4 % (0-10); Myelocyte 1 % (0-0); Neutrophil 82 % (42-75); Nucleated RBC 1 % (0); Platelet Count 150 thou/uL (130-400); Polychromasia SLIGHT = 2-3 cells (100X) (0-2/hpf); RBC Distribution Width 15.4 % (11.5-14.5); Red Blood Cell (RBC) Count 3.68 mill/uL (4.70-6.10); White Blood Cell (WBC) Count 14.3 thou/uL (4.8-10.8)
[2021-07-07] MEDS: Vancomycin 1 GM in Premix Bag 1 BAG IVPB SCH (06:05)
[2021-07-07] MEDS ORDERED: Vancomycin 1 GM in Premix Bag 1 BAG IVPB SCH ×2 (06:15→21:00)
[2021-07-07] MEDS: Dexamethasone 4 MG TAB PO SCH (08:34)
[2021-07-07] MEDS: Acetaminophen 500 MG TAB PO SCH (08:34)
[2021-07-07] MEDS: Ascorbic Acid 500 mg Chewable Tablet PO SCH (08:35)
[2021-07-07] MEDS: Zinc Sulfate 220 MG CAP PO SCH (08:35)
[2021-07-07] MEDS: Enoxaparin Sodium 40 MG/0.4 ML SYRINGE SC SCH (08:35)
[2021-07-07] MEDS: Metoprolol Tartrate 25 MG TAB PO SCH ×2 (08:35→20:42)
[2021-07-07] MEDS: Magnesium Oxide 400 MG TAB PO SCH (08:35)
[2021-07-07] MEDS: Polyethylene Glycol 3350 17 GM Packet PO SCH (08:35)
[2021-07-07 12:58] LABS: ALT (SGPT) 72 U/L (8-55); AST (SGOT) 58 U/L (5-34); Alkaline Phosphatase 101 U/L (40-110); Anion Gap 15 mmol/L (10-20); BUN (Urea Nitrogen) 56 mg/dL (8.4-25.7); Bilirubin, Total 0.5 mg/dL (0.2-1.2); Calc. Creatinine Clearance 74 mL/min (70-130); Calcium 7.8 mg/dL (7.8-10.44); Carbon Dioxide 25 mmol/L (23-31); Chloride 98 mmol/L (98-107); Globulin 2.7 g/dL (2.4-3.5); Glucose 319 mg/dL (80-115); Potassium 5.3 mmol/L (3.5-5.1); Protein, Total 4.7 g/dL (5.8-8.1); Sodium 133 mmol/L (136-145)
[2021-07-07] MEDS ORDERED: Sodium Chloride 0.9% 500 ML IV SCH (13:45)
[2021-07-07] MEDS: traMADol HCl 50 MG TAB PO PRN ×2 (13:56→20:41)
[2021-07-07] MEDS: HumaLOG 300 UNITS/3 ML VIAL SC PRN ×2 (13:59→17:42)
[2021-07-07 15:28] LABS: Vancomycin, Random 19.8 ug/mL (See Comment)
[2021-07-07] MEDS ORDERED: VANCOMYCIN 1.75 GM/350 ML BAG 1.75 GM in Premix Bag 1 BAG IVPB SCH (21:00)
[2021-07-07] MEDS ORDERED: Furosemide 40 MG/4 ML VIAL ONE (23:23)
[2021-07-07] MEDS ORDERED: Furosemide 40 MG/4 ML VIAL SLOW IVP SCH (23:30)
[2021-07-08] MEDS: Cefepime 2 GM in Sodium Chloride 0.9% 100 ML IVPB SCH (03:28)
[2021-07-08 04:14] LABS: Actual Bicarbonate (HCO3a) 21.4 mEq/L (22-28); Base Excess (BEa) -3.3 mEq/L (-2.0 to +3.0); CO2 Tension 36.7 mmHg (35.0-45.0); Calcium, Ionized (arterial) 1.06 mmol/L (1.12-1.30); Carboxyhemoglobin (COHb) 0.3 gm% (0.0-3.0); O2 Tension (PaO2), arterial 63.6 mmHg (> 80.0); Potassium - ABG Lab 5.29 mmol/L (3.70-5.30); pH, Arterial 7.38 (7.35-7.45)
[2021-07-08] MEDS ORDERED: Norepinephrine 8 MG/0.9% NS 250 ML ONE (04:18)
[2021-07-08 04:26] LABS: Puncture Site LRA
[2021-07-08 04:27] LABS: ALV-art Gradient 603.525 mmHg (0-20)
[2021-07-08] MEDS ORDERED: Lorazepam 2 MG/ML VIAL SLOW IVP PRN (04:30)
[2021-07-08] MEDS ORDERED: Fentanyl BOLUS 250 ML IVPB PRN (04:30)
[2021-07-08] MEDS ORDERED: Morphine 2 MG/ML VIAL SLOW IVP PRN (04:30)
[2021-07-08] MEDS ORDERED: Propofol BOLUS 1,000 MG/100 ML VIAL IV PRN (04:30)
[2021-07-08] MEDS ORDERED: DISCONTINUE PREVIOUS NARCOTIC PAIN MEDICATIONS AND BENZODIAZEPINES FS SCH (04:30)
[2021-07-08] MEDS ORDERED: Propofol 1,000 MG/100 ML VIAL IV PRN (04:30)
[2021-07-08] MEDS ORDERED: Fentanyl CADD 100 ML IV SCH (04:30)
[2021-07-08] MEDS ORDERED: EPINEPHrine 1 MG/10 ML Abboject SYRINGE ONE (04:33)
[2021-07-08] MEDS ORDERED: Magnesium 5 GM/10 ML Abboject SYRINGE ONE (04:33)
[2021-07-08] MEDS ORDERED: Sodium Bicarb 50 MEQ/50 ML Abboject 8.4% SYRINGE ONE ×2 (04:33→05:06)
[2021-07-08] MEDS ORDERED: Calcium Chloride 1 GM/10 ML Abboject SYRINGE ONE (04:33)
[2021-07-08 04:59] LABS: ALT (SGPT) 173 U/L (8-55); AST (SGOT) 146 U/L (5-34); Alkaline Phosphatase 149 U/L (40-110); Anion Gap 19 mmol/L (10-20); BUN (Urea Nitrogen) 57 mg/dL (8.4-25.7); Bilirubin, Total 0.7 mg/dL (0.2-1.2); Calc. Creatinine Clearance 71 mL/min (70-130); Calcium 7.4 mg/dL (7.8-10.44); Carbon Dioxide 25 mmol/L (23-31); Chloride 100 mmol/L (98-107); Globulin 2.4 g/dL (2.4-3.5); Glucose 191 mg/dL (80-115); Lactic Acid 8.9 mmol/L (0.5-2.2); Potassium 5.7 mmol/L (3.5-5.1); Protein, Total 4.4 g/dL (5.8-8.1); Sodium 138 mmol/L (136-145)
[2021-07-08 05:37] LABS: Band 12 % (5-11); Hemoglobin 9.4 g/dL (14.0-18.0); Lymphocytes 8 % (21-51); MDiff Complete? YES; Mean Corpuscular Hemoglobin 29.7 pg (27.0-31.0); Mean Corpuscular Volume 93.1 fL (78.0-98.0); Mean Platelet Volume 8.1 fL (7.4-10.4); Monocytes 4 % (0-10); Neutrophil 76 % (42-75); Platelet Count 138 thou/uL (130-400); Red Blood Cell (RBC) Count 3.15 mill/uL (4.70-6.10); White Blood Cell (WBC) Count 14.2 thou/uL (4.8-10.8)
[2021-07-08 06:29] VITALS: TEMP 97.5
== END 2021-07-08 05:28 | disposition expired | DRG 871 ==
LOC: ERS 03:12 → ERHOLD 03:30 → T4-A 04:53 → 2SW 06-26 13:07 → IMCU/EMU 07-03 17:17
PROVIDERS: ADMIT Student in an Organized Health Care Education/Training Program; ATTEND Internal Medicine
PROC: 8E0ZXY6 Isolation (ICD-10-PCS; 2021-06-25)
PROC: 3E0333Z Introduction of Anti-inflammatory into Peripheral Vein, Percutaneous Approach (ICD-10-PCS; 2021-06-25)
PROC: 5A1935Z Respiratory Ventilation, Less than 24 Consecutive Hours (ICD-10-PCS; principal; 2021-07-08)
PROC: 0BH17EZ Insertion of Endotracheal Airway into Trachea, Via Natural or Artificial Opening (ICD-10-PCS; 2021-07-08)
PROC: 3E033XZ Introduction of Vasopressor into Peripheral Vein, Percutaneous Approach (ICD-10-PCS; 2021-07-08)
PROC: 06HY33Z Insertion of Infusion Device into Lower Vein, Percutaneous Approach (ICD-10-PCS; 2021-07-08)
PROC: 5A12012 Performance of Cardiac Output, Single, Manual (ICD-10-PCS; 2021-07-08)
PROC: 5A2204Z Restoration of Cardiac Rhythm, Single (ICD-10-PCS; 2021-07-08)
PROC: 0D9670Z Drainage of Stomach with Drainage Device, Via Natural or Artificial Opening (ICD-10-PCS; 2021-07-08)
DX: A41.9 Sepsis, unspecified organism (principal); U07.1 COVID-19; J12.82 Pneumonia due to coronavirus disease 2019; J96.01 Acute respiratory failure with hypoxia; I21.A1 Myocardial infarction type 2; G93.41 Metabolic encephalopathy; I49.01 Ventricular fibrillation; I46.9 Cardiac arrest, cause unspecified; N17.9 Acute kidney failure, unspecified; I13.0 Hypertensive heart and chronic kidney disease with heart failure and stage 1 through stage 4 chronic kidney disease, or unspecified chronic kidney disease; E46 Unspecified protein-calorie malnutrition; I50.42 Chronic combined systolic (congestive) and diastolic (congestive) heart failure; E87.1 Hypo-osmolality and hyponatremia; I31.9 Disease of pericardium, unspecified; J98.2 Interstitial emphysema; I48.91 Unspecified atrial fibrillation; D75.1 Secondary polycythemia; E87.5 Hyperkalemia; N18.2 Chronic kidney disease, stage 2 (mild); D69.6 Thrombocytopenia, unspecified; E78.5 Hyperlipidemia, unspecified; E11.65 Type 2 diabetes mellitus with hyperglycemia; T38.0X5A Adverse effect of glucocorticoids and synthetic analogues, initial encounter; F41.9 Anxiety disorder, unspecified; E11.22 Type 2 diabetes mellitus with diabetic chronic kidney disease; E86.0 Dehydration; Z79.899 Other long term (current) drug therapy; Z79.4 Long term (current) use of insulin; Z79.51 Long term (current) use of inhaled steroids; Z86.79 Personal history of other diseases of the circulatory system; Z98.890 Other specified postprocedural states; Z68.33 Body mass index [BMI] 33.0-33.9, adult; Z82.49 Family history of ischemic heart disease and other diseases of the circulatory system; Z88.6 Allergy status to analgesic agent; I49.3 Ventricular premature depolarization; Z78.1 Physical restraint status; Z23 Encounter for immunization
CPT/HCPCS: 36415; 36416; 36600; 70450; 71045; 71275; 76700; 80048; 80053; 80076; 80202; 81003; 82140; 82550; 82553; 82570; 82805; 83605; 83735; 83880; 83935; 84100; 84133; 84156; 84300; 84443; 84484; 85025; 85610; 85730; 86140; 87040; 87086; 90471; 90732; 93005; 93010; 93923; 93970; 94760; 99284; G0009; J0171; J0692; J1100; J1650; J1815; J1940; J1956; J2185; J3370; J3475; J3490; J7030; J7050; J7070; J8540; Q9967